=== PATIENT | female | born 1935 | race Caucasian/White ===

== ENCOUNTER 2022-12-30 15:43 | Inpatient (IN) | payer MEDICARE, SELFPAY ==
--- NOTE | ~2022-12-30 | CT_ITS ---
EXAMINATION: CT abdomen pelvis w con DATE: 12/30/2022 18:24 INDICATION: diffuse lower abd pain, N/V, freq UTIs TECHNIQUE: Computed tomography (CT) of the abdomen and pelvis was performed with 100 mL Omnipaque-350 intravenous contrast. Automated exposure control and iterative reconstruction technique were employe d. The dose-length product was 250.25 mGy-cm. COMPARISON: None. FINDINGS: Lower thorax: Aortic valve, mitral, and coronary artery calcifications. Small hiatal hernia Liver: Subcentimeter right lobe hypodensity, too small to characterize but most likely represents a c yst or hemangioma. Biliary/Gallbladder: Gallbladder is absent. No bile duct dilation. Pancreas: No mass or duct dilation. Spleen: Normal. Adrenals:No mass. Kidneys: Simple right lower pole cyst. Bilateral hypodensities, too small to characterize but also li brianna represent cysts. Bilateral cortical thinning. No suspicious mass. No hydronephrosis. No obstruct ing calcification. GI tract: Mild distal esophageal and gastric wall edema. Small uncomplicated appearing duodenal diver ticulum. No small or large bowel dilation. Appendix not confidently visualized. The rectum is dilated to 5.4 cm by partially formed stool. Diverticulosis without diverticulitis. Mesentery/Peritoneum: No ascites, mass, or free air. Retroperitoneum: No mass. Atherosclerotic abdominal aortic and/or arterial calcifications. Pelvis: Pelvic organs partially obscured by metal artifact. Mostly empty urinary bladder. Uterus like ly surgically absent. Soft Tissues: Soft tissues and body wall unremarkable. Bones: No acute osseous finding. Uncomplicated appearing right hip arthroplasty. IMPRESSION: Mild esophagitis/gastritis. Possible mild fecal impaction. Additional chronic and incidental findings are detailed above. Reviewed, dictated and finalized at location K. IMPRESSION: Mild esophagitis/gastritis. Possible mild fecal impaction. Additional chronic a nd incidental findings are detailed above.
[2022-12-30 15:44] VITALS: BP 101/57; PULSE 87; RESP 16; TEMP 37.1; O2SAT 98
--- NOTE | 2022-12-30 15:49 | ECG_ITS ---
Measurements Intervals [place] Rate: 74 P: 28 AL: 162 QRS: -29 QRSD: 80 T: 6 QT: 388 QTc: 433 Interpretive Statements SINUS RHYTHM LOW QRS VOLTAGE IN PRECORDIAL LEADS [QRS DEFLECTION < 1.0 mV IN CHEST LEADS] POOR R-WAVE PROGRESSION, CANNOT RULE OUT AN OLD ANTEROSEPTAL MS NO PREVIOUS ECG AVAILABLE FOR COMPARISON Electronically Signed On 12-31-2022 15:00:09 CDT by Jinny Torres M.D.
[2022-12-30 17:14] LABS: Basophils Percent Auto 0.4 % (0.2-1.2); Eosinophils Absolute Auto 0.1 K/mm3 (0-0.3); Eosinophils Percent Auto 0.8 % (0-4.4); Hemoglobin 10.3 g/dL (12.0-15.0); Immature Granulocyte Absolute 0.03 K/mm3 (0.00-0.031); Immature Granulocyte Percent A 0.4 % (0-0.5); Lymphocytes Absolute Auto 1.21 K/mm3 (0.9-3.2); Lymphocytes Percent Auto 16.4 % (18.3-44.2); Mean Corpuscular HGB Conc 34.3 g/dl (32-36); Mean Corpuscular Volume 96.2 fl (80-100); Monocytes Absolute Auto 0.7 K/mm3 (0.1-0.6); Monocytes Percent Auto 8.8 % (2.6-8.5); Neutrophils Absolute Auto 5.4 K/mm3 (1.3-6.7); Neutrophils Percent Auto 73.2 % (45.5-73.1); Platelet Count Result 214 k/mm3 (150-375); Red Blood Count 3.12 M/mm3 (4.2-5.4); Red Cell Distribution Width 15.7 % (11.5-14.5); White Blood Count 7.4 K/mm3 (4.5-10.0)
[2022-12-30 17:25] LABS: Alanine Aminotransferase 24 U/L (6-35); Albumin Level 3.5 g/dL (3.5-5.1); Alkaline Phosphatase 56 U/L (38-126); Anion Gap 4 mmol/L (8-16); Aspartate Amino Transferase 35 U/L (14-36); Bilirubin,Total 1.4 mg/dL (0.2-1.3); Blood Urea Nitrogen 19 mg/dL (7-17); Calcium 9.7 mg/dL (8.4-10.2); Carbon Dioxide 35 mmol/L (22-30); Chloride 90 mmol/L (98-107); Estimated Glomerular Filt Rate 42; Glucose 99 mg/dL (65-110); Lipase 302 U/L (23-300); Sodium 129 mmol/L (137-145)
[2022-12-30 17:49] VITALS: BP 174/77; PULSE 73; RESP 17; O2SAT 100
[2022-12-30 18:28] LABS: Appearance Urine Turbid (Clear); Bacteria Urine None Seen /hpf; Bilirubin Urine 1+ (Negative); Blood Urine Negative (Negative); Color Urine Dark Yellow (Yellow); Glucose Urine UA Negative (Negative); Hyaline Casts Urine Present /lpf; Ketones Urine Trace mg/dL (Negative); Leukocyte Esterase Ur 1+ LEU/UL (Negative); Nitrate Urine Negative (Negative); Non Pathogenic Casts >20; Protein Urine 2+ mg/dL (Negative); RBC Urine 0-2 /hpf (0-2); Specific Grav Ur 1.022 (1.001-1.035); Squamous Epithelial Cell Urine Moderate /hpf (Few); pH Urine 5.5 (5.0-9.0)
[2022-12-30 18:29] LABS: Add Urine Microscopic? YES
--- NOTE | 2022-12-30 18:33 | ED.NAVMDI ---
HPI - Nausea/Vomiting/Diarrhea General Chief complaint: Nausea/Vomiting/Diarrhea <WILLIS Stevens Last Filed: 12/30/22 22:46> Stated complaint: not eating <WILLIS Stevens Last Filed: 12/30/22 22:46> Time Seen by Provider: 12/30/22 17:36 <WILLIS Stevens Last Filed: 12/30/22 22:46> Source: patient and family <WILLIS Stevens Last Filed: 12/30/22 22:46> Mode of arrival: ambulatory <WILLIS Stevens Last Filed: 12/30/22 22:46> Limitations: no limitations and dementia <WILLIS Stevens Last Filed: 12/30/22 22:46> History of Present Illness HPI Narrative: Patient is an 87-year-old female who presents to the ED with family with report of nausea, vomiting, weakness. Patient has a history of dementia and is somewhat a poor historian at baseline. Family at bedside assisted in providing information. They report patient was diagnosed with a UTI a few weeks ago. She finished 1 round of antibiotics, but then began having recurrent hematuria. She was started on levofloxacin about 1 week ago and has since finished this, but has had persistent dysuria, nausea, vomiting, decreased p.o. intake, weakness, and lower abdominal pain for the last several days. Unable to keep anything down. Family concerned she is dehydrated. Denies any fever. Denies diarrhea/constipation, last BM yesterday. Denies focal weakness. <WILLIS Stevens Last Filed: 12/30/22 22:46> Related Data Home medications: Home Medications Medication Instructions Recorded Confirmed atorvastatin 20 mg tablet 80 mg PO HS 08/31/19 12/30/22 carvedilol 12.5 mg tablet 12.5 mg PO Q12H 08/31/19 12/30/22 clopidogrel 75 mg tablet 75 mg PO DAILY 08/31/19 12/30/22 isosorbide dinitrate 30 mg tablet 30 mg PO BID 08/31/19 12/30/22 lisinopril 10 mg tablet 10 mg PO DAILY 08/31/19 12/30/22 metformin 500 mg tablet 500 mg PO BID 08/31/19 12/30/22 aspirin 81 mg capsule 81 mg PO DAILY 06/05/22 12/30/22 vitamin E (dl, acetate) 90 mg (200 90 mg PO DAILY 09/25/22 12/30/22 unit) capsule <Sophy Lal PA-C - Last Filed: 12/30/22 22:46> Allergies/Adverse reactions: Allergies Allergy/AdvReac Type Severity Reaction Status Date / Time No Known Allergies Allergy Verified 12/30/22 15:47 <Sophy Lal PA-C - Last Filed: 12/30/22 22:46> Review of Systems Review of Systems: CONSTITUTIONAL: See HPI. Denies fever, chills, or sweats. CARDIOVASCULAR: Denies chest pain, palpitations, or edema. RESPIRATORY: Denies cough or dyspnea. GASTROINTESTINAL: See HPI. GENITOURINARY: HPI. SKIN: Denies rash or itching. MUSCULOSKELETAL: Denies back pain, joint pain, or myalgia. NEUROLOGIC: See HPI. <Sophy Lal PA-C - Last Filed: 12/30/22 22:46> All systems reviewed & are unremarkable except as noted in HPI and below <Sophy Lal PA-C - Last Filed: 12/30/22 22:46> COUNT INCLUDES THE [facility] Past Medical History Medical History: Medical History Coronary artery disease Diabetes A1C=6.3 on 10/25/20 A1C 6.1 on 03/24/2020 A1C 6.9 on 10/08/2019 Eye problems Heart disease High cholesterol Osteoarthritis of left knee Osteoporosis Small bowel problem Vascular disease <Sophy Lal PA-C - Last Filed: 12/30/22 22:46> Surgical History Surgical History: Surgical History History of back surgery History of cholecystectomy History of heart surgery 9 cardiac stents. 2010,2011 History of hip surgery Right JAYME History of hysterectomy <Sophy Lal PA-C - Last Filed: 12/30/22 22:46> Family History Family History: Family History Daughter Diabetes mellitus Mother Cerebrovascular accident Hypertension Sibling Cancer <Sophy Grissom
[2022-12-30] MEDS: SODIUM CHLORIDE 0.9% IV 1,000 ML 999 ML IV CONT (18:52)
[2022-12-30] MEDS: ONDANSETRON INJ 4 MG/2 ML VIAL IV PUSH (19:47)
--- NOTE | 2022-12-30 20:08 | PM.IMHP ---
H&P: HPI History of Present Illness Date/Time: 12/30/22 20:08 Chief Complaint: n/v Narrative: This is an 87 yo female with PMHx significant for Dementia, HTN, T2DM, CAD. Patient was brought to ED for evaluation due to n/v, not doing well, for the last 2 weeks, poor per oral intake, was seen by her PCP and found to have a UTI placed on antibiotics orally however continue to feel ill was given a different antibiotic but no improvement. History has been obtained from daughter who is at bedside, patient only says thank you . In ED patient was found to have several electrolytes abnormalities and persistent UTI.Patient has a manager urgent care during the day, lives by herself but family is close by. Patient is been admitted for further evaluation, management and treatment EXAMINATION: CT abdomen pelvis w con DATE: 12/30/2022 18:24 INDICATION: diffuse lower abd pain, N/V, freq UTIs TECHNIQUE: Computed tomography (CT) of the abdomen and pelvis was performed with 100 mL Omnipaque-350 intravenous contrast. Automated exposure control and iterative reconstruction technique were employed. The dose-length product was 250.25 mGy-cm. COMPARISON: None. FINDINGS: Lower thorax: Aortic valve, mitral, and coronary artery calcifications. Small hiatal hernia Liver: Subcentimeter right lobe hypodensity, too small to characterize but most likely represents a cyst or hemangioma.? Biliary/Gallbladder: Gallbladder is absent. No bile duct dilation. Pancreas: No mass or duct dilation. Spleen: Normal. Adrenals:No mass. Kidneys: Simple right lower pole cyst. Bilateral hypodensities, too small to characterize but also likely represent cysts. Bilateral cortical thinning. No suspicious mass. No hydronephrosis. No obstructing calcification. GI tract: Mild distal esophageal and gastric wall edema. Small uncomplicated appearing duodenal diverticulum. No small or large bowel dilation. Appendix not confidently visualized. The rectum is dilated to 5.4 cm by partially formed stool. Diverticulosis without diverticulitis. Mesentery/Peritoneum: No ascites, mass, or free air. Retroperitoneum: No mass. Atherosclerotic abdominal aortic and/or arterial calcifications. Pelvis: Pelvic organs partially obscured by metal artifact. Mostly empty urinary bladder. Uterus likely surgically absent. Soft Tissues: Soft tissues and body wall unremarkable. Bones:? No acute osseous finding. Uncomplicated appearing right hip arthroplasty. IMPRESSION: Mild esophagitis/gastritis. Possible mild fecal impaction. Additional chronic and incidental findings are detailed above. Review of Systems Review of Systems: ROS unobtainable: Yes unobtainable due to medical condition (dementia) [facility] Past Medical History Medical History Coronary artery disease Diabetes A1C=6.3 on 10/25/20 A1C 6.1 on 03/24/2020 A1C 6.9 on 10/08/2019 Eye problems Heart disease High cholesterol Osteoarthritis of left knee Osteoporosis Small bowel problem Vascular disease Surgical History Surgical History History of back surgery History of cholecystectomy History of heart surgery 9 cardiac stents. 2010,2011 History of hip surgery Right JAYME History of hysterectomy Family History Family History Daughter Diabetes mellitus Mother Cerebrovascular accident Hypertension Sibling Cancer Social History Social History Smoking packs per day: 0.5 Smoking cigarettes per day: 10.0 Years smoked: 15 Smoking pack-years: 7.50 Smoking status: Former smoker Alcohol intake: never Substance use: never Lack of Transportation: No Lack of Food: Never True Current Housing: I Have Housing Concerned About Future Housing: No Difficulty Paying Gas/Electric Bills: No Difficulty Brando
[2022-12-30] MEDS: PANTOPRAZOLE SODIUM IV 40 MG VIAL IV PUSH (20:38)
[2022-12-30 21:37] VITALS: BP 138/67; PULSE 75; RESP 18; O2SAT 98
[2022-12-30 22:00] VITALS: BP 112/65; PULSE 74; RESP 18; TEMP 36.2; O2SAT 94
[2022-12-30 22:16] VITALS: BMI 23.0
--- NOTE | 2022-12-30 22:52 | PC.NURSE ---
This patient, Linda Perry, was admitted to Medical Room 346-01. Patient/family oriented to hospital policies and general routines including ID bracelet, bed and alarms, visiting hours, pain management, procedures, bathroom and other care routines, personal items, smoking policy, room service/diet, and visiting hours. Information on how to activate the Rapid Response Team has been discussed. Patient/Family are encouraged to report perceived risks to care and to ask questions if they do not understand what they are told or what they should do. Spoke with daughter Nahomy to get admission information.
[2022-12-31 04:57] VITALS: BP 134/48; PULSE 66; RESP 18; TEMP 37.1; O2SAT 98
[2022-12-31 08:32] LABS: Glucose Point of Care 78 mg/dl (65-105)
[2022-12-31 10:04] VITALS: PULSE 66
[2022-12-31] MEDS: carvediloL 12.5 MG TABLET PO (10:04)
[2022-12-31] MEDS: CLOPIDOGREL BISULFATE 75 MG TABLET PO (10:04)
[2022-12-31] MEDS: ISOSORBIDE DINITRATE 20 MG TABLET PO ×2 (10:04→17:34)
[2022-12-31] MEDS: ISOSORBIDE DINITRATE 10 MG TABLET PO ×2 (10:04→17:34)
[2022-12-31 11:31] LABS: Glucose Point of Care 123 mg/dl (65-105)
[2022-12-31 11:48] VITALS: BP 102/54; PULSE 74; RESP 16; TEMP 36.3; O2SAT 96
[2022-12-31 12:42] VITALS: BMI 23.0
[2022-12-31 16:15] LABS: Basophils Percent Auto 0.5 % (0.2-1.2); Eosinophils Absolute Auto 0.1 K/mm3 (0-0.3); Eosinophils Percent Auto 1.4 % (0-4.4); Hematocrit 26.7 % (37.0-47.0); Hemoglobin 8.8 g/dL (12.0-15.0); Immature Granulocyte Absolute 0.01 K/mm3 (0.00-0.031); Immature Granulocyte Percent A 0.2 % (0-0.5); Lymphocytes Absolute Auto 1.14 K/mm3 (0.9-3.2); Lymphocytes Percent Auto 20.7 % (18.3-44.2); Mean Corpuscular Hemoglobin 32.5 pg (26-34); Mean Corpuscular Volume 98.5 fl (80-100); Mean Platelet Volume 10.6 fl (7.4-10.4); Monocytes Absolute Auto 0.5 K/mm3 (0.1-0.6); Monocytes Percent Auto 9.4 % (2.6-8.5); Neutrophils Absolute Auto 3.7 K/mm3 (1.3-6.7); Neutrophils Percent Auto 67.8 % (45.5-73.1); Platelet Count Result 191 k/mm3 (150-375); Red Blood Count 2.71 M/mm3 (4.2-5.4); Red Cell Distribution Width 15.5 % (11.5-14.5); White Blood Count 5.5 K/mm3 (4.5-10.0)
[2022-12-31 16:27] LABS: Alanine Aminotransferase 19 U/L (6-35); Albumin Level 2.7 g/dL (3.5-5.1); Alkaline Phosphatase 39 U/L (38-126); Anion Gap 3 mmol/L (8-16); Aspartate Amino Transferase 29 U/L (14-36); Bilirubin,Total 0.8 mg/dL (0.2-1.3); Blood Urea Nitrogen 19 mg/dL (7-17); Calcium 8.6 mg/dL (8.4-10.2); Carbon Dioxide 32 mmol/L (22-30); Chloride 91 mmol/L (98-107); Estimated Glomerular Filt Rate 47; Glucose 91 mg/dL (65-110); Potassium 3.1 mmol/L (3.4-5.0); Sodium 126 mmol/L (137-145)
[2022-12-31 16:34] LABS: Glucose Point of Care 91 mg/dl (65-105)
[2022-12-31 20:41] VITALS: BP 95/46; PULSE 65; RESP 16; TEMP 36.4; O2SAT 97
[2022-12-31 21:08] LABS: Glucose Point of Care 122 mg/dl (65-105)
--- NOTE | 2022-12-31 21:25 | PM.IMPN ---
Progress Note: A&P Assessment and Plan (1) Nausea and vomiting: Qualifiers: Vomiting type: unspecified Qualified Code(s): R11.2 - Nausea with vomiting, unspecified Code(s): R11.2 - Nausea with vomiting, unspecified Status: Acute Assessment and Plan: Multifactorial, likely secondary to constipation and UTI, resolved at this time (2) UTI (urinary tract infection): Qualifiers: Hematuria presence: without hematuria Urinary tract infection type: acute cystitis Qualified Code(s): N30.00 - Acute cystitis without hematuria Code(s): N39.0 - Urinary tract infection, site not specified Status: Acute Assessment and Plan: Continue Rocephin, follow up urine cultures Patient was on Levaquin on an outpatient basis, however, she did not take the medication as prescribed (3) Hyponatremia: Code(s): E87.1 - Hypo-osmolality and hyponatremia Status: Acute Assessment and Plan: IV fluids, supportive care (4) Acute renal insufficiency: Code(s): N28.9 - Disorder of kidney and ureter, unspecified Status: Acute Assessment and Plan: Hold lisinopril, continue IV fluids, monitor (5) Diabetes: Code(s): E11.9 - Type 2 diabetes mellitus without complications Status: Acute Assessment and Plan: Accu-Cheks, sliding scale insulin, hold metformin (6) Dementia: Code(s): F03.90 - Unspecified dementia, unspecified severity, without behavioral disturbance, psychotic disturbance, mood disturbance, and anxiety Status: Acute Assessment and Plan: Unchanged, 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 No overnight events noted. No chest pain or shortness of breath. No nausea, vomiting or diarrhea. No fevers or chills. Review of Systems Review of Systems: 12 point review of systems was assessed and was negative except as noted in the HPI Exam Narrative: General: No acute distress, alert and oriented per baseline HEENT: Atraumatic, normocephalic, mucous membranes moist CV: Regular rate and rhythm, S1, S2 Lungs: Clear to auscultation bilaterally, no rales or crackles noted, no wheezes, good air entry Abdomen: Soft, nontender, nondistended Extremities: Normal to inspection Skin: No rashes noted, no lesions or wounds seen Psych: Euthymic, normal affect Objective Data Vital Signs Vital Signs: Vital Signs - 24 hr 12/30/22 21:37 12/30/22 22:00 12/30/22 22:48 Temperature 97.2 F L Pulse Rate 75 74 Respiratory Rate 18 18 Blood Pressure 138/67 112/65 Pulse Oximetry 98 94 Oxygen Delivery Room Air 12/31/22 04:57 12/31/22 10:04 12/31/22 11:48 Temperature 98.7 F 97.4 F L Pulse Rate 66 66 74 Respiratory Rate 18 16 Blood Pressure 134/48 L 102/54 L Pulse Oximetry 98 96 Oxygen Delivery 12/31/22 20:41 Temperature 97.6 F Pulse Rate 65 Respiratory Rate 16 Blood Pressure 95/46 L Pulse Oximetry 97 Oxygen Delivery Intake/Output Intake/Output: Intake & Output 12/28/22 12/29/22 12/30/22 12/31/22 23:59 23:59 23:59 23:59 Intake Total 1050 580 Output Total 400 Balance 1050 180 Meds/Results Medications: Active Medications Generic Name Dose Route Start Last Admin Trade Name [place] PRN Reason Stop Dose Admin Carvedilol 12.5 mg 12/31/22 09:00 12/31/22 10:04 Carvedilol 12.5 Mg Tablet PO 12.5 mg Q12HR MARIA ESTHER Administration Clopidogrel Bisulfate 75 mg 12/31/22 09:00 12/31/22 10:04 Clopidogrel Bisulfate 75 Mg Tablet PO 75 mg DAILY MARIA ESTHER Administration Ceftriaxone Sodium 1 gm
[2022-12-31] MEDS: SODIUM CHLORIDE 0.9% IV 1,000 ML 999 ML IV CONT (22:07)
[2022-12-31] MEDS: POTASSIUM CHLORIDE INJ 40 MEQ in SODIUM CHLORIDE 0.9% IV 500 ML 130 MEQ IVPB (22:08)
[2022-12-31] MEDS: SODIUM CHLORIDE 0.9% IV 1,000 ML 100 ML IV CONT (22:30)
[2023-01-01 04:53] VITALS: BP 145/48; PULSE 68; RESP 16; TEMP 37.2; O2SAT 97
[2023-01-01 06:02] LABS: Basophils Percent Auto 0.4 % (0.2-1.2); Eosinophils Absolute Auto 0.1 K/mm3 (0-0.3); Eosinophils Percent Auto 2.4 % (0-4.4); Hemoglobin 8.2 g/dL (12.0-15.0); Immature Granulocyte Absolute 0.02 K/mm3 (0.00-0.031); Immature Granulocyte Percent A 0.4 % (0-0.5); Lymphocytes Absolute Auto 1.36 K/mm3 (0.9-3.2); Lymphocytes Percent Auto 25.3 % (18.3-44.2); Mean Corpuscular HGB Conc 32.8 g/dl (32-36); Mean Corpuscular Hemoglobin 32.5 pg (26-34); Mean Corpuscular Volume 99.2 fl (80-100); Mean Platelet Volume 10.2 fl (7.4-10.4); Monocytes Absolute Auto 0.5 K/mm3 (0.1-0.6); Monocytes Percent Auto 9.7 % (2.6-8.5); Neutrophils Absolute Auto 3.3 K/mm3 (1.3-6.7); Neutrophils Percent Auto 61.8 % (45.5-73.1); Platelet Count Result 162 k/mm3 (150-375); Red Blood Count 2.52 M/mm3 (4.2-5.4); Red Cell Distribution Width 15.4 % (11.5-14.5); White Blood Count 5.4 K/mm3 (4.5-10.0)
[2023-01-01 06:14] LABS: Alanine Aminotransferase 16 U/L (6-35); Albumin Level 2.3 g/dL (3.5-5.1); Alkaline Phosphatase 41 U/L (38-126); Anion Gap -1 mmol/L (8-16); Aspartate Amino Transferase 22 U/L (14-36); Bilirubin,Total 0.5 mg/dL (0.2-1.3); Blood Urea Nitrogen 14 mg/dL (7-17); Calcium 8.1 mg/dL (8.4-10.2); Carbon Dioxide 33 mmol/L (22-30); Chloride 100 mmol/L (98-107); Estimated Glomerular Filt Rate 52; Glucose 88 mg/dL (65-110); Potassium 3.7 mmol/L (3.4-5.0); Sodium 132 mmol/L (137-145)
[2023-01-01 08:31] LABS: Glucose Point of Care 104 mg/dl (65-105)
[2023-01-01 08:59] VITALS: PULSE 68
[2023-01-01] MEDS: CLOPIDOGREL BISULFATE 75 MG TABLET PO (08:59)
[2023-01-01] MEDS: ISOSORBIDE DINITRATE 10 MG TABLET PO (08:59)
[2023-01-01] MEDS: ISOSORBIDE DINITRATE 20 MG TABLET PO (08:59)
[2023-01-01] MEDS: carvediloL 12.5 MG TABLET PO (08:59)
[2023-01-01 11:55] LABS: Glucose Point of Care 130 mg/dl (65-105)
--- NOTE | 2023-01-01 12:52 | PM.DS ---
DS: Admitting Diagnosis Discharge Date 01/01/23 Admitting Diagnosis Nausea and vomiting DS: Discharge Diagnosis Discharge Diagnosis (1) Nausea and vomiting: Qualifiers: Vomiting type: unspecified Qualified Code(s): R11.2 - Nausea with vomiting, unspecified Code(s): R11.2 - Nausea with vomiting, unspecified Status: Acute (2) UTI (urinary tract infection): Qualifiers: Hematuria presence: without hematuria Urinary tract infection type: acute cystitis Qualified Code(s): N30.00 - Acute cystitis without hematuria Code(s): N39.0 - Urinary tract infection, site not specified Status: Acute (3) Hyponatremia: Code(s): E87.1 - Hypo-osmolality and hyponatremia Status: Acute (4) Acute renal insufficiency: Code(s): N28.9 - Disorder of kidney and ureter, unspecified Status: Acute (5) Diabetes: Code(s): E11.9 - Type 2 diabetes mellitus without complications Status: Acute (6) Dementia: Code(s): F03.90 - Unspecified dementia, unspecified severity, without behavioral disturbance, psychotic disturbance, mood disturbance, and anxiety Status: Acute DS: Summary Hospital Course Reason for hospitalization: 87yo female with PMHx significant for dementia, HTN, DM, and CAD here for nausea and vomiting. Hx from the family state the patient was on an abx for a UTI that she finished but continued to have problems. She was started on a 2nd abx for 5 days that caused nausea and vomiting. Family state she did finish the 2nd antibiotic. Please see H&P for details. Hospital Course: On admissions, vital signs were stable. EKG showing normal sinus rhythm with poor R wave progression. CT abdomen and pelvis showing mild esophagitis/gastritis and possible mild fecal impaction. WBC was normal and remained normal. hgb was 10.3 and did drop to 8 range with IV fluids. No evidence of acute blood loss. UA noted. UCx ordered. Rocephin started. UCx was negative. Sodium was 129 and came up to 132. Cr up at 1.2 but down to 1.0 with IV fluids. No baseline renal function to compare. Lipase essentially normal. LFTs normal wxcept for bili of 1.4 but normal on repeat. She ws started on diet and advanced. She tolerated this well. No BMs noted on I/O chart. She did well and was able to be discharged back home on 01/01/23. Family at bedside and hospital course and discharge plan discussed. Status at Discharge Cognitive/behavioral status at discharge: stable Time Spent with Patient Time attestation: Total time spent providing and/or coordinating discharge services: 35 minutes Time spent: Greater than 30 minutes Exam Narrative: AF 98.9 145/48 68 18 97% ra Gen - NARD Chest - CTA bilaterally, nml RR CV - RRR S1/S2 Abd - Soft, NT/ND, Positive BS Ext - No pedal edema Neuro - Alert but confused Psych - Nml mood and affect Skin - Warm and dry DS: Data Data Completed and Pending Labs on day of discharge: Labs from last 24 hours 01/01/23 01/01/23 01/01/23 11:49 08:28 05:42 WBC 5.4 RBC 2.52 L Hgb 8.2 L Hct 25.0 L MCV 99.2 MCH 32.5 MCHC 32.8 RDW 15.4 H Plt Count 162 MPV 10.2 Immature Gran % (Auto) 0.4 Neut % (Auto) 61.8 Lymph % (Auto) 25.3 Boyle % (Auto) 9.7 H Eos % (Auto) 2.4 Baso % (Auto) 0.4 Lymph # (Auto) 1.36 Boyle # (Auto) 0.5 Eos # (Auto) 0.1 Baso # (Auto) 0.0 Abs Immat Gran (auto) 0.02 Absolute Neuts (auto) 3.3 Absolute Nucleated RBC 0.0 Nucleated RBC % 0.0 Sodium 132 L Potassium 3.7 Chloride 100 Carbon Dioxide 33 H Anion Gap -1 L BUN 14 D Creatinine 1.00 Estim Creat Clear Calc Not Reportable Estimated GFR 52 L Glucose 88 POC Capillary Glucose 130 H 104 Calcium 8.1 L Total Bilirubin 0.5 AST 22 ALT 16 Alkaline Phosphatase 41 Total Protein 4.0 L Albumin 2.3 L 12/31/22 12/31/22 12/31/22 2
[2023-01-01 13:54] VITALS: BP 116/71; PULSE 76; RESP 16; TEMP 36.1; O2SAT 96
--- NOTE | 2023-01-01 14:10 | PCCCNOTE ---
On 01/01/23, the student, [Vika Alcazar], provided care and completed [facility] documentation on this patient. I have reviewed the student's documentation and agree with the findings.
== END 2023-01-01 14:30 | disposition home or self-care (01) | DRG 690 ==
LOC: ANHED 18:12 → ANH3MED 21:32
PROVIDERS: Emergency Medicine; Student in an Organized Health Care Education/Training Program; Admitting Provider Internal Medicine; Emergency Provider Physician Assistant; PCP Internal Medicine; Visit Provider Internal Medicine
DX: N39.0 Urinary tract infection, site not specified (principal); I25.10 Atherosclerotic heart disease of native coronary artery without angina pectoris; I10 Essential (primary) hypertension; E11.9 Type 2 diabetes mellitus without complications; E78.00 Pure hypercholesterolemia, unspecified; N28.9 Disorder of kidney and ureter, unspecified; M81.0 Age-related osteoporosis without current pathological fracture; M17.12 Unilateral primary osteoarthritis, left knee; F03.90 Unspecified dementia, unspecified severity, without behavioral disturbance, psychotic disturbance, mood disturbance, and anxiety; Z95.5 Presence of coronary angioplasty implant and graft; Z87.891 Personal history of nicotine dependence; Z79.82 Long term (current) use of aspirin
CPT/HCPCS: 36415; 74177; 80053; 81001; 82948; 83690; 85025; 87086; 93005; 96361; 96374; 99285; A9270; C9113; J0696; J2405; J3480; J7030; J7040; Q9967

== ENCOUNTER 2023-02-07 12:55 | Inpatient (IN) | payer MEDICARE, SELFPAY ==
[2023-02-07] VITALS (14 sets, daily range): BP systolic 103–181; BP diastolic 47–79; PULSE 71–92; RESP 11–19; TEMP 36.4–37.3; O2SAT 97–100; BMI 21.7
--- NOTE | ~2023-02-07 | CT_ITS ---
EXAMINATION: CT cervical spine wo con DATE: 02/07/2023 13:44 INDICATION: Fall with head injury TECHNIQUE: Computed tomography (CT) of the cervical spine was performed without intravenous contrast. Automated exposure control and iterative reconstruction technique were employed. The dose-length pro duct was 86.85 mGy-cm. COMPARISON: None FINDINGS: 2 mm anterolisthesis C7 on T1. Alignment is otherwise normal. Mild osteoarthritis at the atlantoaxial articulation with small mild surrounding calcified pannus. Vertebral body heights are normal. No fra cture. Severe disc height loss at C4-C5, moderate to severe disc height loss at C3-C4 and C5-C6, mode rate disc height loss at C2-C3 and C6-C7. Mild disc height loss at C7-T1 and T2-T3. Atherosclerotic c alcifications at the bilateral carotid bulbs, right greater than left. Cervical soft tissues are othe rwise unremarkable. Mild emphysema and mild right apical pleural-parenchymal scarring. There are coup le 2-3 mm nodules at the right apex. The following disc levels are specifically discussed: C2-C3: Posterior endplate osteophytes. There is severe bilateral uncovertebral joint osteoarthritis. There is mild right and moderate left facet joint osteoarthritis. There is minimal bilateral neural f oraminal stenosis. There is mild central canal stenosis. C3-C4: Posterior endplate osteophytes. There is severe bilateral uncovertebral joint osteoarthritis. There is mild left and mild to moderate right facet joint osteoarthritis. There is moderate left and mild to moderate right neural foraminal stenosis. There is mild to moderate central canal stenosis. C4-C5: Anterior endplate osteophytes. There is severe bilateral uncovertebral joint osteoarthritis. T here is mild left and moderate right facet joint osteoarthritis. There is mild to moderate bilateral neural foraminal stenosis. There is moderate central canal stenosis. C5-C6: Posterior endplate osteophytes. There is severe bilateral uncovertebral joint osteoarthritis. There is mild right and moderate left facet joint osteoarthritis. There is moderate left and mild to moderate right neural foraminal stenosis. There is mild central canal stenosis. C6-C7: Small posterior endplate osteophytes. There is severe bilateral uncovertebral joint osteoarthr itis. There is old right and moderate to severe left facet joint osteoarthritis. There is mild bilate ral neural foraminal stenosis. There is mild central canal stenosis. C7-T1: There is no uncovertebral joint osteoarthritis. There is moderate right and severe left facet joint osteoarthritis. There is no neural foraminal stenosis. There is no central canal stenosis. IMPRESSION: 1. Severe cervical spondylosis. No acute osseous abnormality. Reviewed, dictated and finalized at location A.
--- NOTE | ~2023-02-07 | CT_ITS ---
CT head without contrast Indication: Head injury Technique: Serial scans were obtained through the brain without the administration of contrast. Dose reduction technique was used on this scan by utilizing automated exposure control and iterative recon struction technique. The dose-length product (DLP) was 529.67 mGy-cm. Findings: There is focal asymmetric hyperdensity at the right caudate head/right internal capsule miladis suring approximately 1 cm overall maximum extent, suspicious for focal acute hemorrhage (axial image 20).. The ventricles and subarachnoid spaces are dilated, consistent with mild atrophy. Low attenua tion regions are seen within the periventricular white matter bilaterally, likely representing change s from chronic microvascular ischemic disease. There is no evidence of edema, mass effect or midline shift. The visualized paranasal sinuses and mastoid air cells are clear. Impression: Probable focal acute hemorrhage at the right caudate head/internal capsule, as detailed above. Atrophy and chronic white matter changes, as above. Case discussed with Dr. Graf at the time of this reading. Reviewed, dictated and finalized at location M. Impression: Probable focal acute hemorrhage at the right caudate head/internal capsule, as detailed above. Atrophy and chronic white matter changes, as above. Case discussed with Dr. Graf at the time of this reading.
--- NOTE | 2023-02-07 13:04 | ECG_ITS ---
Measurements Intervals [place] Rate: 71 P: 63 CO: 167 QRS: -2 QRSD: 73 T: 14 QT: 392 QTc: 427 Interpretive Statements SINUS RHYTHM LOW QRS VOLTAGE IN PRECORDIAL LEADS CANNOT RULE OUT SEPTAL INFARCT, AGE INDETERMINATE BASELINE ARTIFACT- I, II, III, AVR, AVL, AVF, V2 ABNORMAL ECG COMPARED TO ECG 12/30/2022 17:06:58 NO SIGNIFICANT CHANGES Electronically Signed On 02-07-2023 19:57:13 CDT by Maurilio Win D.O.
--- NOTE | 2023-02-07 13:10 | PC.NURSE ---
EDP Graf notified of patient's presentation and symptoms. Per ED Graf verbal order read-back, order CT of head and neck.
[2023-02-07 13:24] LABS: Basophils Percent Auto 0.3 % (0.2-1.2); Eosinophils Percent Auto 0.1 % (0-4.4); Hemoglobin 8.5 g/dL (12.0-15.0); Immature Granulocyte Absolute 0.04 K/mm3 (0.00-0.031); Immature Granulocyte Percent A 0.5 % (0-0.5); Lymphocytes Percent Auto 9.1 % (18.3-44.2); Mean Corpuscular Hemoglobin 35.1 pg (26-34); Mean Corpuscular Volume 103.3 fl (80-100); Mean Platelet Volume 9.8 fl (7.4-10.4); Monocytes Absolute Auto 0.7 K/mm3 (0.1-0.6); Monocytes Percent Auto 8.2 % (2.6-8.5); Neutrophils Absolute Auto 7.2 K/mm3 (1.3-6.7); Neutrophils Percent Auto 81.8 % (45.5-73.1); Platelet Count Result 232 k/mm3 (150-375); Red Blood Count 2.42 M/mm3 (4.2-5.4); Red Cell Distribution Width 15.8 % (11.5-14.5); White Blood Count 8.8 K/mm3 (4.5-10.0)
[2023-02-07 13:36] LABS: Alanine Aminotransferase 30 U/L (6-35); Alkaline Phosphatase 46 U/L (38-126); Anion Gap 3 mmol/L (8-16); Aspartate Amino Transferase 56 U/L (14-36); Bilirubin,Total 1.4 mg/dL (0.2-1.3); Blood Urea Nitrogen 22 mg/dL (7-17); Calcium 8.6 mg/dL (8.4-10.2); Carbon Dioxide 31 mmol/L (22-30); Chloride 91 mmol/L (98-107); Estimated Glomerular Filt Rate 59; Glucose 117 mg/dL (65-110); Sodium 125 mmol/L (137-145)
--- NOTE | 2023-02-07 13:47 | ED.FEMALEGU ---
HPI - Female Genitourinary General Chief complaint: Urogenital-Female Stated complaint: sent by PCP for abnormal labs/UTI Time Seen by Provider: 02/07/23 13:46 Source: family Mode of arrival: ambulatory Limitations: dementia History of Present Illness HPI Narrative: 87 years old white female came to the emergency room because of dehydration and urine infection. Patient lives alone, her daughter visits her every now and then, patient was seen yesterday by her family physician for general weakness and blood work-up today showed dehydration and urinary tract infection. Patient received a phone call to go to the emergency room for management. Few minutes prior to arrival to the emergency room patient slipped and fell, complaining of forehead hematoma and bruises. She denies any new symptoms. Patient have dementia, oriented to her name only. Patient currently on aspirin, she is DNR. Related Data Home Medications Medication Instructions Recorded Confirmed atorvastatin 20 mg tablet 80 mg PO HS 08/31/19 12/30/22 carvedilol 12.5 mg tablet 12.5 mg PO Q12H 08/31/19 12/30/22 clopidogrel 75 mg tablet 75 mg PO DAILY 08/31/19 12/30/22 isosorbide dinitrate 30 mg tablet 30 mg PO BID 08/31/19 12/30/22 lisinopril 10 mg tablet 10 mg PO DAILY 08/31/19 12/30/22 metformin 500 mg tablet 500 mg PO BID 08/31/19 12/30/22 aspirin 81 mg capsule 81 mg PO DAILY 06/05/22 12/30/22 vitamin E (dl, acetate) 90 mg (200 90 mg PO DAILY 09/25/22 12/30/22 unit) capsule Allergies Allergy/AdvReac Type Severity Reaction Status Date / Time No Known Allergies Allergy Verified 12/30/22 15:47 Review of Systems Review of Systems: All systems reviewed & are unremarkable except as noted in HPI and below PMFSH Past Medical History Medical History Coronary artery disease Diabetes A1C=6.3 on 10/25/20 A1C 6.1 on 03/24/2020 A1C 6.9 on 10/08/2019 Eye problems Heart disease High cholesterol Osteoarthritis of left knee Osteoporosis Small bowel problem Vascular disease Surgical History Surgical History History of back surgery History of cholecystectomy History of heart surgery 9 cardiac stents. 2010,2011 History of hip surgery Right JAYME History of hysterectomy Family History Family History Daughter Diabetes mellitus Mother Cerebrovascular accident Hypertension Sibling Cancer Social History Social History Smoking packs per day: 0.5 Smoking cigarettes per day: 10.0 Years smoked: 15 Smoking pack-years: 7.50 Smoking status: Former smoker Alcohol intake: never Substance use: never Lack of Transportation: No Lack of Food: Never True Current Housing: I Have Housing Concerned About Future Housing: No Difficulty Paying Gas/Electric Bills: No Difficulty Paying for Meds: No Currently Unemployed: No Education: Decline to Answer Difficulty w/ Childcare or Family Care: No Living arrangements: with family Additional living arrangements comments: Spouse Occupation/Education: retired Spiritual care concerns: No Exam Narrative: General appearance: Well-developed, malnourished Skin: Forehead hematoma and bruises Head: Normocephalic, forehead hematoma and bruises Eyes: Clear conjunctiva ENT: Oropharynx normal, ears normal, nose normal Neck: Supple, nontender Chest and respiratory: Airway patent, no respiratory distress, no accessory muscle use Heart: Regular rate/rhythm Abdomen: Soft, nontender, no organomegaly, quiet bowel sounds Vascular: Normal peripheral pulses, normal capillary refill. Musculoskeletal: Full range of motion of the right lower extremity because of pain. Neurologic: Alert and oriented to her name only.
[2023-02-07] MEDS: SODIUM CHLORIDE 0.9% IV 1,000 ML 100 ML IV CONT (14:15)
[2023-02-07] MEDS: SODIUM CHLORIDE 0.9% IV 1,000 ML 60 ML IV CONT (14:41)
[2023-02-07 15:41] LABS: Appearance Urine Turbid (Clear); Bacteria Urine 1+ /hpf; Bilirubin Urine 1+ (Negative); Blood Urine 2+ (Negative); Color Urine Dark Yellow (Yellow); Glucose Urine UA Trace mg/dL (Negative); Hyaline Casts Urine Present /lpf; Ketones Urine Trace mg/dL (Negative); Leukocyte Esterase Ur 2+ LEU/UL (Negative); Nitrate Urine Negative (Negative); Non Pathogenic Casts >20; Protein Urine 2+ mg/dL (Negative); Specific Grav Ur 1.018 (1.001-1.035); Squamous Epithelial Cell Urine Few /hpf (Few); WBC Urine 21-50 /hpf; pH Urine 5.5 (5.0-9.0)
[2023-02-07 15:42] LABS: Add Urine Microscopic? YES
--- NOTE | 2023-02-07 16:07 | PC.NURSE ---
This patient, Linda Perry, was admitted to [facility] Surg Room 325-02. Patient/family oriented to hospital policies and general routines including ID bracelet, bed and alarms, visiting hours, pain management, procedures, bathroom and other care routines, personal items, smoking policy, room service/diet, and visiting hours. Report received from Jaren TABARES Information on how to activate the Rapid Response Team has been discussed. Patient/Family are encouraged to report perceived risks to care and to ask questions if they do not understand what they are told or what they should do.
[2023-02-07] MEDS: ONDANSETRON INJ 4 MG/2 ML VIAL IV PUSH (16:28)
[2023-02-07] MEDS: ACETAMINOPHEN 325 MG TABLET 650 MG PO (17:50)
--- NOTE | 2023-02-07 17:53 | PM.IMHP ---
H&P: HPI History of Present Illness Date/Time: 02/07/23 17:53 Chief Complaint: Abnormal lab Narrative: This is an 87-year-old female patient he lives at home alone. The patient came to the emergency room because of dehydration and urinary tract infection. Her daughter visits her occasionally and was seen by her family members yesterday and taken to her primary care doctor for generalized weakness and her blood work was showing a dehydration and urinary tract infection. The patient received a phone call to go to the emergency room for management. A few minutes prior to the arrival of the emergency room the patient fell and hit her head. She has a hematoma bruising to the left side of her head. She denies any other symptoms. The patient was alert and answering questions for me. H&H was 8.5 in 25.0 which is her baseline. Her potassium was 3.0 and her sodium was 125. The patient was positive for UTI. Head CT was read as a following Probable focal acute hemorrhage at the right caudate head/internal capsule, as detailed above. Atrophy and chronic white matter changes, as above. Case discussed with Dr. Graf at the time of this reading. The ED provider talked with family and they have decided not to have the patient transferred to tertiary care for neurosurgeon. The family opted to keep the family here and have her treated for UTI and IV fluids. The family decided not to do anything about her possible focal acute hemorrhage at the right caudate head internal capsule. The patient is a DNR. The patient was given potassium, IV fluids and Rocephin in the emergency room. The patient is being admitted to inpatient status on the date of service of 02/07/2023. Review of Systems Review of Systems: All systems reviewed & are unremarkable except as noted in HPI and below Constitutional: Constitutional: Reports as per HPI and Reports no additional constitutional complaints Eyes: Eyes: Reports as per HPI and Reports no additional eye complaints ENT: Reports system reviewed and no additional complaints, except as documented and Reports Normal hearing present Cardiovascular: Cardiovascular: Reports no additional cardiovascular complaints Respiratory: Respiratory: Reports no additional respiratory complaints and Reports no additional respiratory complaints Gastrointestinal: Gastrointestinal: Reports as per HPI and Reports no additional gastrointestinal complaints Musculoskeletal: Musculoskeletal: Reports no additional musculoskeletal complaints Integumentary/Breasts: Skin/Breast: Reports system reviewed and no additional complaints, except as docu and Reports as per HPI Neurologic: Reports system reviewed and no additional complaints, except as documented, Reports as per HPI and Reports Normal hearing present Psychiatric: Psychiatric: Reports no additional psychiatric complaints and Reports as per HPI Endocrine: Endocrine: Reports no additional endocrine complaints Hematologic/Lymphatic: Hematologic/Lymphatic: Reports no additional hematologic/lymphatic complaints Allergic/Immunologic: Allergic/Immunologic: Reports no additional allergic/immunologic complaints [facility] Past Medical History Medical History Coronary artery disease Diabetes A1C=6.3 on 10/25/20 A1C 6.1 on 03/24/2020 A1C 6.9 on 10/08/2019 Eye problems Heart disease High cholesterol Osteoarthritis of left knee Osteoporosis Small bowel problem Vascular disease Surgical History Surgical History History of back surgery History of cholecystectomy History of heart surgery 9 cardiac stents. 2010,2011 History of hip surgery Right JAYME History of hysterectomy Family History Family History Daughter Diabetes mellitus Mother Cerebrovascular accident Hypertension Sibling Cancer Social History Social His
[2023-02-08 01:56] LABS: Anion Gap 3 mmol/L (8-16); Blood Urea Nitrogen 23 mg/dL (7-17); Calcium 8.2 mg/dL (8.4-10.2); Carbon Dioxide 30 mmol/L (22-30); Chloride 92 mmol/L (98-107); Estimated Glomerular Filt Rate 52; Glucose 68 mg/dL (65-110); Sodium 125 mmol/L (137-145)
[2023-02-08] MEDS: SODIUM CHLORIDE 0.9% IV 1,000 ML 60 ML IV CONT (05:07)
[2023-02-08 05:52] VITALS: BP 144/69; PULSE 68; RESP 18; TEMP 36.6; O2SAT 98
[2023-02-08 06:16] LABS: Basophils Percent Auto 0.6 % (0.2-1.2); Eosinophils Absolute Auto 0.1 K/mm3 (0-0.3); Eosinophils Percent Auto 0.9 % (0-4.4); Hematocrit 23.1 % (37.0-47.0); Hemoglobin 7.7 g/dL (12.0-15.0); Immature Granulocyte Absolute 0.02 K/mm3 (0.00-0.031); Immature Granulocyte Percent A 0.4 % (0-0.5); Lymphocytes Absolute Auto 1.08 K/mm3 (0.9-3.2); Mean Corpuscular HGB Conc 33.3 g/dl (32-36); Mean Corpuscular Hemoglobin 33.9 pg (26-34); Mean Corpuscular Volume 101.8 fl (80-100); Mean Platelet Volume 9.7 fl (7.4-10.4); Monocytes Absolute Auto 0.6 K/mm3 (0.1-0.6); Monocytes Percent Auto 11.1 % (2.6-8.5); Neutrophils Absolute Auto 3.6 K/mm3 (1.3-6.7); Platelet Count Result 188 k/mm3 (150-375); Red Blood Count 2.27 M/mm3 (4.2-5.4); Red Cell Distribution Width 15.8 % (11.5-14.5); White Blood Count 5.4 K/mm3 (4.5-10.0)
[2023-02-08 06:35] LABS: Alanine Aminotransferase 27 U/L (6-35); Albumin Level 2.5 g/dL (3.5-5.1); Alkaline Phosphatase 39 U/L (38-126); Anion Gap 2 mmol/L (8-16); Aspartate Amino Transferase 44 U/L (14-36); Bilirubin,Total 0.9 mg/dL (0.2-1.3); Blood Urea Nitrogen 22 mg/dL (7-17); Calcium 7.8 mg/dL (8.4-10.2); Carbon Dioxide 30 mmol/L (22-30); Chloride 94 mmol/L (98-107); Estimated Glomerular Filt Rate 59; Glucose 71 mg/dL (65-110); Potassium 3.1 mmol/L (3.4-5.0); Sodium 126 mmol/L (137-145)
[2023-02-08 07:44] LABS: Thyroid Stimulating Hormone Reflex 0.729 uIU/mL (0.465-4.68)
[2023-02-08] MEDS: POTASSIUM CHLORIDE 20 MEQ ER TABLET PO ×2 (08:44→16:21)
[2023-02-08] MEDS: carvediloL 12.5 MG TABLET PO ×2 (08:44→22:13)
[2023-02-08] MEDS: POTASSIUM CHLORIDE 20 MEQ ER TABLET 40 MEQ PO (08:44)
[2023-02-08] MEDS: lisinopriL 10 MG TABLET PO (08:45)
[2023-02-08] MEDS: ISOSORBIDE DINITRATE 10 MG TABLET 30 MG PO ×2 (08:45→22:13)
--- NOTE | 2023-02-08 11:07 | PM.IMPN ---
Progress Note: A&P Assessment and Plan (1) UTI (urinary tract infection): Qualifiers: Hematuria presence: without hematuria Urinary tract infection type: site unspecified Qualified Code(s): N39.0 - Urinary tract infection, site not specified Code(s): N39.0 - Urinary tract infection, site not specified Status: Acute Assessment and Plan: The patient was started on Rocephin. Blood and urine cultures are pending. (2) Intracranial hemorrhage: Code(s): I62.9 - Nontraumatic intracranial hemorrhage, unspecified Status: Acute Assessment and Plan: The ED provider had a discussion with the family members and the patient is DNR. The patient has a hematoma to the left frontal lobe area. CT was read as Probable focal acute hemorrhage at the right caudate head/internal capsule, as detailed above. Atrophy and chronic white matter changes, as above. Case discussed with Dr. Graf at the time of this reading The family decided to keep the patient here and not to have her sent to a tertiary center with the neurosurgeon. (3) Hyponatremia: Code(s): E87.1 - Hypo-osmolality and hyponatremia Status: Acute Assessment and Plan: Nephrology consult Sodium 125 repeat BMp tonight and check urine osmolality. (4) Generalized weakness: Code(s): R53.1 - Weakness Status: Acute Assessment and Plan: May consider PT OT evaluation and care management if the patient survives the acute intracranial hemorrhage. The patient is currently on comfort measures. (5) Diabetes: Code(s): E11.9 - Type 2 diabetes mellitus without complications Status: Acute Assessment and Plan: Accu-Cheks AC and HS listened to the insulin check A1c hold metformin. Subjective Date/time seen: 02/08/23 11:07 Interval history: No new complaints Exam Const: General: cooperative, healthy appearing, comfortable, no acute distress, well developed, alert, awake, Physically active, average body habitus, well nourished and thin Nutritional Appearance: average body habitus, well nourished and thin Orientation/consciousness: oriented to person, oriented to place, oriented to time and patient oriented x3 Limitations: no limitations HENMT: Head: normal to inspection, No palpable skull fracture present, normocephalic, atraumatic and abrasion left frontal Ears: hearing grossly normal bilaterally and external ears normal Face/Nose/Sinus: Normal external nose present and Normal nares present Eyes: General: appearance normal, both eyes and all related structures Alignment and Position: alignment normal Periorbital: periorbital findings normal Eyelids: eyelids normal Sclera: sclerae normal Pupils: Equal, round and reactive pupils present EOM: EOMs intact bilaterally Neck: Neck: normal visual inspection, full ROM, no lymphadenopathy, trachea midline and supple Chest: Chest palpation & inspection: normal inspection of the chest Resp: Effort & Inspection: normal respiratory effort Auscultation: clear to auscultation bilaterally Cardio: Palpation: normal PMI Rate: regular rate Rhythm: regular rhythm Heart sounds: S1 normal heart sound present and S2 normal heart sound present Peripheral pulses: Peripheral pulses 2+ throughout GI: Inspection: normal to inspection Auscultation: normal bowel sounds Rectal Exam: deferred Back/Spine/Pelvis: Cervical Spine: cervical ROM normal Skin: General skin exam: normal color and abrasion (Left frontal hematoma) Lesions: no lesions Rashes: no rashes Trauma: abrasion (Left frontal hematoma) Wounds: no wounds Hair: normal Nails: normal Neuro: General: oriented to person, oriented to place, oriented to time and patient oriented x3 Cranial nerves: Yes Equal, round and reactive pupils present and Yes Normal hearing present Cognition (Neuro): normal cognition Speech: normal speech Gait exam (Neuro): Normal gait present Motor exam (neuro): 5/5 motor
[2023-02-08 14:00] VITALS: BP 148/64; PULSE 69; RESP 16; TEMP 36.6; O2SAT 98
--- NOTE | 2023-02-08 14:40 | PM.CNNEP ---
Assessment and Plan Assessment and plan (1) Hyponatremia: Code(s): E87.1 - Hypo-osmolality and hyponatremia Status: Acute Assessment and Plan: chronic issues appears to run around 126 - 132 mmol/L risk factors for low sodium: recent head trauma (CT of head noted) pain issues prerenal factors (?) other (?) check TSH, cortisol, SPEP, UPEP, serum/urine osmo trial of gentle IVFs follow trend of repeat sodium levels (2) Intracranial hemorrhage: Code(s): I62.9 - Nontraumatic intracranial hemorrhage, unspecified Status: Acute Assessment and Plan: as noted by admission brain imaging however, family not interested in aggressive measures or intervention continue supportive therapy (3) UTI (urinary tract infection): Qualifiers: Hematuria presence: without hematuria Urinary tract infection type: site unspecified Qualified Code(s): N39.0 - Urinary tract infection, site not specified Code(s): N39.0 - Urinary tract infection, site not specified Status: Acute Assessment and Plan: admission UA suggestive on antibiotics follow-up on culture results (4) Diabetes: Code(s): E11.9 - Type 2 diabetes mellitus without complications Status: Chronic Assessment and Plan: follow accu-cheks glycemic control per hospitalists I will continue to follow the patient with you while she remains hospitalized and make further recommendations as needed. Thank you for allowing me to participate in the care this patient. History of Present Illness Reason for Consult Consult date: 02/08/23 Reason for consult: hyponatremia Chief Complaint Chief complaint: Traumatic Intracranial Hemorrhage/UTI/Hyponatremia History of Present Illness Narrative: The patient is an 87-year-old female a past medical history as outlined below who presented to [facility] Emergency room at the behest her primary care physician due to concerns dehydration and possible urinary tract infection. The patient was visually seen by her primary care physician for further evaluation of generalized weakness. Apparently, outpatient blood work and urine testing demonstrated findings concerning for dehydration and a possible urinary tract infection. She was subsequently informed by her primary care physician's office to come to the emergency room for further assessment. Unfortunately, prior to her arrival to the emergency room, the patient apparently fell and hit her head. Workup and evaluation emergency room demonstrated a hematoma on the left side of her head but she was otherwise asymptomatic. She was awake and alert and was able answer questions within the limits of her baseline mentation. Routine blood test demonstrated evidence of hyponatremia, hypokalemia, and anemia. Her urinalysis was highly suggestive of urinary tract infection. Her head CT was done given the aforementioned fall which demonstrated probable focal acute hemorrhage at the right caudate head / internal capsule. The ER physician discussed these results with the patient's family and the likely need for neuro surgical evaluation but the patient's family requested conservative therapy for this finding as they were not interested in any surgery or surgical intervention. Given her hyponatremia and suspected urinary tract infection, she was admitted to the hospital for further evaluation and therapy. Renal consultation was requested due to her hyponatremia. From review of her records, it appears she has had some degree of chronic hyponatremia which is acutely worsened as noted by her admission labs. In spite of the finding of hyponatremia, her mental status appears to be relatively stable according to her family at bedside. Her baseline sodium level new she runs around 126-132 millimoles per L. Currently, the time my visit, she appears to be in no acute distress. Review of Systems Review of Systems:
[2023-02-08] MEDS: ATORVASTATIN 40 MG TABLET 80 MG PO (16:21)
[2023-02-08 19:59] VITALS: PULSE 69; RESP 16; O2SAT 98
[2023-02-08 22:00] VITALS: BP 170/89; PULSE 70; RESP 18; TEMP 36.5; O2SAT 100
[2023-02-08 22:13] VITALS: PULSE 69
[2023-02-08] MEDS: ACETAMINOPHEN 325 MG TABLET 650 MG PO (22:13)
[2023-02-09] MEDS: SODIUM CHLORIDE 0.9% IV 1,000 ML 60 ML IV CONT (03:44)
[2023-02-09 05:54] VITALS: BP 170/82; PULSE 71; RESP 18; TEMP 36.6; O2SAT 100
[2023-02-09 06:40] VITALS: BP 152/68; PULSE 67; RESP 20; TEMP 36.6; O2SAT 98
[2023-02-09 06:42] LABS: Basophils Percent Auto 0.6 % (0.2-1.2); Eosinophils Absolute Auto 0.1 K/mm3 (0-0.3); Eosinophils Percent Auto 1.9 % (0-4.4); Hematocrit 23.1 % (37.0-47.0); Hemoglobin 7.6 g/dL (12.0-15.0); Immature Granulocyte Absolute 0.02 K/mm3 (0.00-0.031); Immature Granulocyte Percent A 0.4 % (0-0.5); Lymphocytes Absolute Auto 0.97 K/mm3 (0.9-3.2); Lymphocytes Percent Auto 18.1 % (18.3-44.2); Mean Corpuscular HGB Conc 32.9 g/dl (32-36); Mean Corpuscular Hemoglobin 33.9 pg (26-34); Mean Corpuscular Volume 103.1 fl (80-100); Mean Platelet Volume 10.3 fl (7.4-10.4); Monocytes Absolute Auto 0.5 K/mm3 (0.1-0.6); Monocytes Percent Auto 8.8 % (2.6-8.5); Neutrophils Absolute Auto 3.8 K/mm3 (1.3-6.7); Neutrophils Percent Auto 70.2 % (45.5-73.1); Platelet Count Result 206 k/mm3 (150-375); Red Blood Count 2.24 M/mm3 (4.2-5.4); Red Cell Distribution Width 15.7 % (11.5-14.5); White Blood Count 5.4 K/mm3 (4.5-10.0)
[2023-02-09] MEDS: ACETAMINOPHEN 325 MG TABLET 650 MG PO (06:54)
[2023-02-09 07:27] LABS: Potassium 3.9 mmol/L (3.4-5.0)
[2023-02-09 07:35] LABS: Anion Gap 0 mmol/L (8-16); Blood Urea Nitrogen 16 mg/dL (7-17); Calcium 7.9 mg/dL (8.4-10.2); Carbon Dioxide 28 mmol/L (22-30); Chloride 96 mmol/L (98-107); Estimated Glomerular Filt Rate > 60; Glucose 83 mg/dL (65-110); Sodium 124 mmol/L (137-145)
[2023-02-09 07:50] LABS: Creatinine Urine 36.1 mg/dL; Sodium Urine Random 93 meq/L
[2023-02-09 08:05] LABS: Sodium Urine Random 94 meq/L
[2023-02-09] MEDS: lisinopriL 10 MG TABLET PO (08:39)
[2023-02-09 08:40] VITALS: PULSE 49
[2023-02-09] MEDS: ISOSORBIDE DINITRATE 10 MG TABLET 30 MG PO (08:40)
[2023-02-09] MEDS: POTASSIUM CHLORIDE 20 MEQ ER TABLET PO (08:40)
[2023-02-09] MEDS: SODIUM CHLORIDE 500 MG TABLET PO ×2 (10:17)
[2023-02-09] MEDS: ONDANSETRON INJ 4 MG/2 ML VIAL IV PUSH (10:21)
--- NOTE | 2023-02-09 11:26 | PM.IMPN ---
Progress Note: A&P Assessment and Plan (1) UTI (urinary tract infection): Qualifiers: Hematuria presence: without hematuria Urinary tract infection type: site unspecified Qualified Code(s): N39.0 - Urinary tract infection, site not specified Code(s): N39.0 - Urinary tract infection, site not specified Status: Acute Assessment and Plan: The patient was started on Rocephin. Blood and urine cultures are pending. (2) Intracranial hemorrhage: Code(s): I62.9 - Nontraumatic intracranial hemorrhage, unspecified Status: Acute Assessment and Plan: Patient family do not want anything done with this. No change in neurologic status (3) Hyponatremia: Code(s): E87.1 - Hypo-osmolality and hyponatremia Status: Acute Assessment and Plan: Nephrology consult Sodium 125 repeat BMp tonight and check urine osmolality. (4) Generalized weakness: Code(s): R53.1 - Weakness Status: Acute Assessment and Plan: May consider PT OT evaluation and care management if the patient survives the acute intracranial hemorrhage. The patient is currently on comfort measures. (5) Diabetes: Code(s): E11.9 - Type 2 diabetes mellitus without complications Status: Acute Assessment and Plan: Accu-Cheks AC and HS listened to the insulin check A1c hold metformin. (6) Dysphagia: Code(s): R13.10 - Dysphagia, unspecified Status: Acute Assessment and Plan: Will get modified barium swallow on assault with esophagram Subjective Date/time seen: 02/09/23 11:26 Interval history: New complaint of dysphagia Exam Const: General: cooperative, healthy appearing, comfortable, no acute distress, well developed, alert, awake, Physically active, average body habitus, well nourished and thin Nutritional Appearance: average body habitus, well nourished and thin Orientation/consciousness: oriented to person, oriented to place, oriented to time and patient oriented x3 Limitations: no limitations HENMT: Head: normal to inspection, No palpable skull fracture present, normocephalic, atraumatic and abrasion left frontal Ears: hearing grossly normal bilaterally and external ears normal Face/Nose/Sinus: Normal external nose present and Normal nares present Eyes: General: appearance normal, both eyes and all related structures Alignment and Position: alignment normal Periorbital: periorbital findings normal Eyelids: eyelids normal Sclera: sclerae normal Pupils: Equal, round and reactive pupils present EOM: EOMs intact bilaterally Neck: Neck: normal visual inspection, full ROM, no lymphadenopathy, trachea midline and supple Chest: Chest palpation & inspection: normal inspection of the chest Resp: Effort & Inspection: normal respiratory effort Auscultation: clear to auscultation bilaterally Cardio: Palpation: normal PMI Rate: regular rate Rhythm: regular rhythm Heart sounds: S1 normal heart sound present and S2 normal heart sound present Peripheral pulses: Peripheral pulses 2+ throughout GI: Inspection: normal to inspection Auscultation: normal bowel sounds Rectal Exam: deferred Back/Spine/Pelvis: Cervical Spine: cervical ROM normal Skin: General skin exam: normal color and abrasion (Left frontal hematoma) Lesions: no lesions Rashes: no rashes Trauma: abrasion (Left frontal hematoma) Wounds: no wounds Hair: normal Nails: normal Neuro: General: oriented to person, oriented to place, oriented to time and patient oriented x3 Cranial nerves: Yes Equal, round and reactive pupils present and Yes Normal hearing present Cognition (Neuro): normal cognition Speech: normal speech Gait exam (Neuro): Normal gait present Motor exam (neuro): 5/5 motor strength present throughout Sensory Exam: normal sensation Extrem: General: normal to inspection Right upper extremity: normal to inspection and shoulder/upper arm Left upper extremity: normal to inspection
--- NOTE | 2023-02-09 12:52 | PM.PNNEP ---
Progress Note: A&P Assessment and Plan (1) Hyponatremia: Code(s): E87.1 - Hypo-osmolality and hyponatremia Status: Acute Assessment and Plan: no significant improvement chronic issues appears to run around 126 - 132 mmol/L risk factors for low sodium: recent head trauma (CT of head noted) pain issues prerenal factors (?) other (?) hold off on extensive work-up until family decides on level of care... follow trend of repeat sodium levels (2) Intracranial hemorrhage: Code(s): I62.9 - Nontraumatic intracranial hemorrhage, unspecified Status: Acute Assessment and Plan: as noted by admission brain imaging however, family not interested in aggressive measures or intervention continue supportive therapy (3) UTI (urinary tract infection): Qualifiers: Hematuria presence: without hematuria Urinary tract infection type: site unspecified Qualified Code(s): N39.0 - Urinary tract infection, site not specified Code(s): N39.0 - Urinary tract infection, site not specified Status: Acute Assessment and Plan: admission UA suggestive on antibiotics follow-up on culture results (4) Diabetes: Code(s): E11.9 - Type 2 diabetes mellitus without complications Status: Chronic Assessment and Plan: follow accu-cheks glycemic control per hospitalists Will continue to follow. Subjective Date/time seen: 02/09/23 12:52 Interval history: Follow-up for acute on chronic hyponatremia. No apparent distress voiced at the time of my visit; from my discussion with nursing, family contemplating possible hospice and informational meeting to be done today. Exam Narrative: General: elderly Caucaisn female in NAD Heart: normal S1 and S2; no rub Lungs: clear to auscultation Abdomen: soft, nontender, nondistended, positive bowel sounds Extremities: no cyanosis or clubbing; no edema Skin: warm and dry Objective Data Vital Signs Vital Signs: Vital Signs Temp Pulse Resp BP Pulse Ox O2 Del Method 02/09/23 12:00 98.4 F 66 16 168/79 H 98 02/09/23 08:40 Room Air 02/09/23 08:40 49 L 02/09/23 06:40 97.8 F 67 20 152/68 H 98 02/09/23 05:54 97.8 F 71 18 170/82 H 100 02/08/23 22:00 97.7 F 70 18 170/89 H 100 02/08/23 22:13 69 02/08/23 19:59 69 16 98 Room Air Intake/Output Intake/Output: Intake & Output 02/06/23 02/07/23 02/08/23 02/09/23 23:59 23:59 23:59 23:59 Intake Total 1084.3 3290 780 Balance 1084.3 3290 780 Meds/Results Medications: Active Medications Generic Name Dose Route Start Last Admin Trade Name Freq PRN Reason Stop Dose Admin Acetaminophen 650 mg 02/07/23 14:21 02/09/23 06:54 Acetaminophen 325 Mg Tablet PO 650 mg Q4H PRN Administration Mild Pain (1-3) or Fever Atorvastatin Calcium 80 mg 02/08/23 17:00 02/08/23 16:21 Atorvastatin 40 Mg Tablet PO 80 mg 1700 MARIA ESTHER Administration Carvedilol 12.5 mg 02/08/23 09:00 02/09/23 08:40 Carvedilol 12.5 Mg Tablet PO Not Given Q12HR MARIA ESTHER Ceftriaxone Sodium 1 gm in 50 mls @ 100 mls/hr 02/07/23 16:00 02/08/23 17:27 Rocephin 1 Gm/Ns 50 Ml IVPB Infused Q24H MARIA ESTHER Infusion Isosorbide Dinitrate 30 mg 02/08/23 09:00 02/09/23 08:40 Isosorbide Dinitrate 10 Mg Tablet PO 30 mg Q12HR MARIA ESTHER Administration Lisinopril 10 mg 02/08/23 09:00 02/09/23 08:39 Lisinopril 10 Mg Tablet PO 10 mg DAILY MARIA ESTHER Administration Ondansetron HCl 4 mg 02/07/23 14:21 02/09/23 10:21 Ondansetron Inj 4 Mg/2 Ml Vial IV PUSH 4 mg Q4H PRN Administration Nausea Potassium Chloride 20 meq 02/07/23 17:00 02/09/23 08:40 Potassium Chloride 20 Meq Er Tablet PO 20 meq BIDWM MARIA ESTHER Administration Sodium Chloride 500 mg 02/09/23 09:00 02/09/23 10:17 Sodium Chloride 500 Mg Tablet PO 500 mg BID MARI AESTHER Administration Radiology Results: ITS Impress
[2023-02-09 13:28] LABS: Sodium 123 mmol/L (137-145)
[2023-02-09 14:00] VITALS: BP 168/79; PULSE 66; RESP 16; TEMP 36.9; O2SAT 98
--- NOTE | 2023-02-09 14:33 | PM.DS ---
DS: Admitting Diagnosis Discharge Date 02/09/23 Admitting Diagnosis ams DS: Discharge Diagnosis Discharge Diagnosis (1) UTI (urinary tract infection): Qualifiers: Hematuria presence: without hematuria Urinary tract infection type: site unspecified Qualified Code(s): N39.0 - Urinary tract infection, site not specified Code(s): N39.0 - Urinary tract infection, site not specified Status: Acute Assessment and Plan: The patient was started on Rocephin. Blood and urine cultures are pending. (2) Intracranial hemorrhage: Code(s): I62.9 - Nontraumatic intracranial hemorrhage, unspecified Status: Acute Assessment and Plan: Patient family do not want anything done with this. No change in neurologic status (3) Hyponatremia: Code(s): E87.1 - Hypo-osmolality and hyponatremia Status: Acute Assessment and Plan: Nephrology consult Sodium 125 repeat BMp tonight and check urine osmolality. (4) Generalized weakness: Code(s): R53.1 - Weakness Status: Acute Assessment and Plan: May consider PT OT evaluation and care management if the patient survives the acute intracranial hemorrhage. The patient is currently on comfort measures. (5) Diabetes: Code(s): E11.9 - Type 2 diabetes mellitus without complications Status: Acute Assessment and Plan: Accu-Cheks AC and HS listened to the insulin check A1c hold metformin. (6) Dysphagia: Code(s): R13.10 - Dysphagia, unspecified Status: Acute Assessment and Plan: Will get modified barium swallow on assault with esophagram DS: Summary Hospital Course Hospital Course: admitted for fall, electrolyte abnormality, ams, found to have small brain bleed, no intervention requested sent viviana on hospice Time Spent with Patient Time attestation: Total time spent providing and/or coordinating discharge services: Exam Const: General: cooperative, healthy appearing, comfortable, no acute distress, well developed, alert, awake, Physically active, average body habitus, well nourished and thin Nutritional Appearance: average body habitus, well nourished and thin Orientation/consciousness: oriented to person, oriented to place, oriented to time and patient oriented x3 Limitations: no limitations HENMT: Head: normal to inspection, No palpable skull fracture present, normocephalic, atraumatic and abrasion left frontal Ears: hearing grossly normal bilaterally and external ears normal Face/Nose/Sinus: Normal external nose present and Normal nares present Eyes: General: appearance normal, both eyes and all related structures Alignment and Position: alignment normal Periorbital: periorbital findings normal Eyelids: eyelids normal Sclera: sclerae normal Pupils: Equal, round and reactive pupils present EOM: EOMs intact bilaterally Neck: Neck: normal visual inspection, full ROM, no lymphadenopathy, trachea midline and supple Chest: Chest palpation & inspection: normal inspection of the chest Resp: Effort & Inspection: normal respiratory effort Auscultation: clear to auscultation bilaterally Cardio: Palpation: normal PMI Rate: regular rate Rhythm: regular rhythm Heart sounds: S1 normal heart sound present and S2 normal heart sound present Peripheral pulses: Peripheral pulses 2+ throughout GI: Inspection: normal to inspection Auscultation: normal bowel sounds Rectal Exam: deferred Back/Spine/Pelvis: Cervical Spine: cervical ROM normal Skin: General skin exam: normal color and abrasion (Left frontal hematoma) Lesions: no lesions Rashes: no rashes Trauma: abrasion (Left frontal hematoma) Wounds: no wounds Hair: normal Nails: normal Neuro: General: oriented to person, oriented to place, oriented to time and patient oriented x3 Cranial nerves: Yes Equal, round and reactive pupils present and Yes Normal hearing present Cognition (Neuro): normal cognition Speech: normal speech G
--- NOTE | 2023-02-09 14:56 | PCSTNOTE ---
Per radiology lead the order for modified barium swallow study is being cancelled because patient is going on hospice.
[2023-02-09 17:08] LABS: Hepatitis B Surface Antigen Negative (Negative)
[2023-02-09 17:29] LABS: HIV 1/2 Ab P24 Ag Result Negative (Negative); Hepatitis C Virus Antibody Negative (Negative)
[2023-02-11 17:23] LABS: Albumin 2.5 g/dL (3.8-4.8); Alpha 1 Globulin 0.2 g/dL (0.2-0.3); Alpha 2 Globulin 0.5 g/dL (0.5-0.9); Beta 1 Globulin 0.2 g/dL (0.4-0.6); Gamma Globulin 0.6 g/dL (0.8-1.7); Protein, Total 4.1 g/dL (6.1-8.1)
[2023-02-11 17:52] LABS: Kappa\\Lambda Light Chains 0.77 (0.26-1.65); Lambda Light Chain 25.8 mg/L (5.7-26.3)
[2023-02-13 06:49] LABS: Creatinine, Random Urine 38 mg/dL (20-275); Total Protein/Creatinine Ratio 237 mg/g creat (24-184)
[2023-02-13 18:58] LABS: Chloride Rand Ur 79 mmol/L (32-290); Chloride/Creatinine Rand Ur 304 (38-318); Creatinine Random Urine 26 mg/dL (20-275)
== END 2023-02-09 17:30 | disposition hospice, home (50) | DRG 690 ==
LOC: ANHED 14:19 → ANH3MEDSUR 15:44
PROVIDERS: Internal Medicine Nephrology; Nurse Practitioner; Admitting Provider Family Medicine; Emergency Provider Emergency Medicine; PCP Internal Medicine; Visit Provider Chiropractor
DX: N39.0 Urinary tract infection, site not specified (principal); S06.30AA Unspecified focal traumatic brain injury with loss of consciousness status unknown, initial encounter; E87.1 Hypo-osmolality and hyponatremia; E46 Unspecified protein-calorie malnutrition; W01.0XXA Fall on same level from slipping, tripping and stumbling without subsequent striking against object, initial encounter; E11.9 Type 2 diabetes mellitus without complications; R13.10 Dysphagia, unspecified; E87.6 Hypokalemia; E86.0 Dehydration; Z66 Do not resuscitate; F03.90 Unspecified dementia, unspecified severity, without behavioral disturbance, psychotic disturbance, mood disturbance, and anxiety; I25.10 Atherosclerotic heart disease of native coronary artery without angina pectoris; M17.12 Unilateral primary osteoarthritis, left knee; M81.0 Age-related osteoporosis without current pathological fracture; Z79.82 Long term (current) use of aspirin; Z90.49 Acquired absence of other specified parts of digestive tract; Z95.5 Presence of coronary angioplasty implant and graft; Z90.710 Acquired absence of both cervix and uterus; Z87.891 Personal history of nicotine dependence; Z68.21 Body mass index [BMI] 21.0-21.9, adult; Z51.5 Encounter for palliative care
CPT/HCPCS: 36415; 70450; 72125; 80048; 80053; 81001; 82436; 82533; 82570; 83735; 83883; 83930; 84155; 84156; 84165; 84166; 84295; 84300; 84443; 85025; 86703; 86803; 87040; 87086; 87088; 87340; 93005; 99285; A9270; G0432; J0696; J2405; J7030